=== PATIENT | female | born 1980 | race Caucasian/White ===

== ENCOUNTER 2017-06-02 17:40 | Emergency (ER) | payer OTHER ==
[~2017-06-02] VITALS: Ht 162.6 cm; Wt 77.0 kg
[2017-06-02 17:49] VITALS: BP 119/79; PULSE 98; RESP 16; TEMP 98; O2SAT 98
[2017-06-02] MEDS ORDERED: DEXAMETHASONE SOD PHOS 4 MG/ML VIAL IM ONE (18:15)
[2017-06-02] MEDS ORDERED: diphenhydrAMINE HCL 50 MG/ML VIAL IM ONE (18:15)
[2017-06-02] MEDS ORDERED: FAMOTIDINE 20 MG TAB PO ONE (18:15)
[2017-06-02] MEDS ORDERED: FAMO1TAB37 PO (19:04)
[2017-06-02] MEDS ORDERED: PRED20 PO (19:04)
--- NOTE | 2017-06-02 19:05 | PD ---
HPI Chief Complaint: Allergic/Adverse Reaction Time Seen by Provider: 18:11 Travel History International Travel<30 days: No Contact w/Intl Traveler<30days: No Traveled to known affect area: No History of Present Illness HPI 36-year-old female here with body wide rash for 10 hours. She reports when she awoke this morning she had hives. Denies new foods, medications, lotions, detergents. No previous anaphylaxis. Denies difficulty swallowing, change in voice, shortness of breath, wheezing, diarrhea. Symptoms were slightly improved with OTC Benadryl. Symptoms severity is moderate. PFS Past Medical History Medical History: Denies Significant Hx Tetanus Vaccination: < 5 Years Influenza Vaccination: Yes ?: Not LMP: may 14 Social History Alcohol Use: Yes (weekly) Tobacco Use: No Allergies-Medications (Allergen,Severity, Reaction): Coded Allergies: No Known Allergies (Unverified , 06/02/17) Reported Meds & Prescriptions Reported Meds & Active Scripts Active No Active Prescriptions or Reported Medications Review of Systems Except as stated in HPI: all other systems reviewed are Neg Skin: Positive Rash Physical Exam Narrative GENERAL: Alert well-appearing female. No distress. SKIN: Warm and dry. Urticarial rash to the trunk and upper and lower extremities. No rash to the face. HEAD: Normocephalic. EYES: No scleral icterus. No injection or drainage. Mouth: No oropharyngeal edema. Uvula is midline. Airway is patent NECK: Supple, trachea midline. No JVD or lymphadenopathy. CARDIOVASCULAR: Regular rate and rhythm without murmurs, gallops, or rubs. RESPIRATORY: Breath sounds equal bilaterally. No accessory muscle use. No wheezing GASTROINTESTINAL: Abdomen soft, non-tender, nondistended. MUSCULOSKELETAL: No cyanosis, or edema. Data Data Last Documented VS Vital Signs Date Time Temp Pulse Resp B/P (MAP) Pulse Ox O2 Delivery O2 Flow Rate FiO2 06/02/17 17:49 98.0 98 16 119/79 (92) 98 Orders Orders Diphenhydramine Inj (Benadryl Inj) (06/02/17 18:15) Dexamethasone Inj (Decadron Inj) (06/02/17 18:15) Famotidine (Pepcid) (06/02/17 18:15) MDM Medical Decision Making Medical Screen Exam Complete: Yes Emergency Medical Condition: Yes Differential Diagnosis Allergic reaction, idiopathic urticaria, contact dermatitis Narrative Course 36-year-old male widespread urticaria since 8 AM this morning. No respiratory distress. No oral edema. Patient was administered Decadron 8 mg IM. Benadryl 50 mg IM. Pepcid 40 mg by mouth and observed in the emergency department. On reexam patient reports symptom improvement. The rash is resolving. Patient is requesting discharge. She'll be discharged home on steroids, Benadryl, Pepcid. Return precautions were discussed. Patient verbalizes understanding and agrees to plan Diagnosis Primary Impression: Urticaria Referrals: Primary Care Physician Additional Instructions: Take [id number] Benadryl 25-50 milligrams every 6 hours for itching. Return to emergency department or call 911 if he developed new or worsening symptoms. Scripts Famotidine (Pepcid) 20 Mg Tab 20 MG PO BID, #8 TAB 0 Refills Prov: Miracle Dodd 06/02/17 Prednisone (Prednisone) 20 Mg Tab 40 MG PO DAILY, #8 TAB 0 Refills Take 40 mg (2 tablets) daily for 5 days Prov: Miracle Dodd 06/02/17 Disposition: 01 DISCHARGE HOME Condition: Stable Miracle Dodd Jun 02, 2017 19:05
== END 2017-06-02 19:20 | disposition home or self-care (01) ==
LOC: PHEFT 17:40
DX: L50.9 Urticaria, unspecified (principal)
CPT/HCPCS: 96372; 99284; J1100; J1200